=== PATIENT | female | born 1950 | race Caucasian/White ===

== ENCOUNTER 2018-08-09 00:22 | Inpatient (IN) ==
--- NOTE | 2018-08-09 00:52 | ED ---
HPI General Chief Complaint: Shortness of Breath/Dyspnea Stated Complaint: resp Time Seen by Provider: 08/09/18 00:34 Source: patient Mode of arrival: ambulatory Limitations: no limitations History of Present Illness 68-year-old female complains that upper back pain and shortness of breath. Patient states that symptoms started about 4 hours prior to arrival. Patient states the pain is sharp pain severe pain localized to left upper back area. Patient denies any pain radiation. Patient states that the pain is worse with deep breathing. Patient states that she has persistent cough for the past month. Patient states the cough is dry cough and got better recently. Patient denies any fever chills. Patient denies any injury. Patient has history of COPD. Patient is a smoker. Patient uses inhaler occasionally. Patient also has history of PVCs, psoriasis, fibromyalgia. Patient states that she noticed the pain and swelling the right leg for the past 4 days. Patient denies any recent long distance travel or airplane flight. Patient is not on any hormone replacement. Patient denies any history of DVT or PE. MD Complaint: Reports shortness of breath, cough and pain with inspiration Onset (ago): hour(s) Severity: moderate Consistency/Duration: intermittent Relieving factors: nothing Exacerbating factors: inspiration Known history of: Reports COPD Associated symptoms: Reports pain with inspiration and cough Treatment prior to arrival: Reports none Related Data Home Medications Medication Instructions Recorded Confirmed clobetasol 1 applic TOPICAL BID 08/09/18 08/09/18 esomeprazole magnesium [Nexium] 20 mg PO DAILY 08/09/18 08/09/18 melatonin 5 mg PO HS PRN 08/09/18 08/09/18 metoprolol succinate 25 mg PO DAILY 08/09/18 08/09/18 naproxen sodium [Aleve] 220 mg PO BID PRN 08/09/18 08/09/18 oxycodone-acetaminophen [Percocet] 1 tab PO Q4-6H PRN 08/09/18 08/09/18 pregabalin [Lyrica] 75 mg PO DAILY 08/09/18 08/09/18 sertraline 100 mg PO DAILY 08/09/18 08/09/18 umeclidinium-vilanterol [Anoro 1 inh INHALATION Q24H 08/09/18 08/09/18 Ellipta] Allergies Allergy/AdvReac Type Severity Reaction Status Date / Time meperidine Allergy Intermediate Hives Verified 08/09/18 00:28 morphine Allergy Intermediate Hives Verified 08/09/18 00:28 Review of Systems ROS: all other systems reviewed are negative PMFSH Medical History Medical History COPD (chronic obstructive pulmonary disease) (Acute) Fibromyalgia (Acute) Hx of hysterectomy (Acute) PVC (premature ventricular contraction) (Acute) Pleurisy (Acute) Psoriasis (Acute) Tachycardia (Acute) Social History Social History Substance History: No History of Abuse Second Hand Smoke Exposure: Yes Smoking Status: Current every day smoker Tobacco Type: Cigarettes How Often Do You Have a Drink Containing Alcohol: Never Recent Travel in [facility] within the Last 8 Weeks: No Recent Out of Country Travel within the Last 8 Weeks: No Immunization History Tetanus Immunization: >5 Years Exam Narrative Exam Narrative: GENERAL: Well-nourished, well-developed patient. SKIN: Focused skin assessment warm/dry. HEAD: Normocephalic. EYES: No scleral icterus. No injection or drainage. NECK: Supple, trachea midline. No JVD or lymphadenopathy. CARDIOVASCULAR: Regular rate and rhythm without murmurs, gallops, or rubs. RESPIRATORY: Breath sounds equal bilaterally. No accessory muscle use. GASTROINTESTINAL: Abdomen soft, non-tender, nondistended. MUSCULOSKELETAL: Patient had diffuse soft tissue swelling tenderness right calf area. Negative Homans sign. BACK: Nontender without obvious deformity. No CVA tenderness. Neurologic exam normal. Course Initial Documented Vital Signs Temperature 97.4 F L 08/09/18 00:24 Pulse Rate 67 08/09/18 00:24 Respiratory Rate 18 08/09/18 00:24 Blood Pressure 173/81 H 08/09/18 00:24 Pulse Oximetry 99 08/09/18 00:24 Last Documented Vital Signs Temperature 98.8 F 08/09/18 20:00 Pulse Rate 84 08/09/18 22:00 Respiratory Rate 18 08/09/18 22:00 Blood Pressure 146/65 H 08/09/18 22:00 Pulse Oximetry 93 L 08/09/18 22:00 Medical Decision Making MDM Narrative Medical decision making narrative: 68-year-old female with left upper back pain and shortness of breath. History of COPD. Medical Screen Exam Complete: Yes Emergency Medical Condition: Yes Differential Diagnosis Differential Diagnosis: Diagnosis including pleurisy, pneumonia, PE, pneumothorax. Lab Data Lab results reviewed: Yes I reviewed the patient's lab results. Result diagrams: 08/09/18 01:00 08/09/18 01:00 Lab Results 08/09/18 08/09/18 08/09/18 Range/Units 01:00 01:00 01:00 WBC 6.1 (4.0-11.0) th/mm3 RBC 4.29 (4.00-5.30) mil/mm3 Hgb 12.8 (11.6-15.3) gm/dL Hct 37.3 (35.0-46.0) % MCV 86.8 (80.0-100.0) fL MCH 29.8 (27.0-34.0) pg MCHC 34.4 (32.0-36.0) % RDW 14.1 (11.6-17.2) % Plt Count 149 L (150-450) th/mm3 MPV 7.7 (7.0-11.0) fL Neut % (Auto) 85.9 H (16.0-70.0) % Lymph % (Auto) 9.9 (9.0-44.0) % Bent % (Auto) 2.4 (0.0-8.0) % Eos % (Auto) 1.3 (0.0-4.0) % Baso % (Auto) 0.5 (0.0-2.0) % Neut # (Auto) 5.3 (1.8-7.7) th/mm3 Lymph # (Auto) 0.6 L (1.0-4.8) th/mm3 Bent # (Auto) 0.1 (0.0-0.9) th/mm3 Eos # (Auto) 0.1 (0.0-0.4) th/mm3 Baso # (Auto) 0.0 (0.0-0.2) th/mm3 WBC Differential . Differential Comment Auto diff final PT 9.4 L (9.8-11.6) sec INR 0.9 Ratio APTT 29.0 (23.4-31.7) sec D-Dimer Quant (PE/DVT) 4.31 H (0.00-0.50) mg/L FEU Sodium 142 (136-145) meq/L Potassium 3.9 (3.5-5.1) meq/L Chloride 107 (98-107) meq/L Carbon Dioxide 26.2 (21.0-32.0) meq/L Anion Gap 9 (5-15) meq/L BUN 10 (7-18) mg/dL Creatinine 0.81 (0.50-1.00) mg/dL Estimated GFR 71 L (>89) mL/min POC Glucose (68-110) mg/dl Random Glucose 123 H (74-106) mg/dL Calcium 8.2 L (8.5-10.1) mg/dL Total Bilirubin 0.7 (0.2-1.0) mg/dL AST 27 (15-37) U/L ALT 25 (10-53) U/L Alkaline Phosphatase 108 (45-117) U/L Total Creatine Kinase 106 (26-192) U/L CK-MB (CK-2) 1.6 (0.5-3.6) ng/mL Troponin I Less than 0.02 L (0.02-0.05) ng/mL Total Protein 7.3 (6.4-8.2) g/dL Albumin 3.3 L (3.4-5.0) g/dL Nasal Screen MRSA (PCR) (Negative) 08/09/18 08/09/18 08/09/18 Range/Units 03:25 04:52 05:52 WBC (4.0-11.0) th/mm3 RBC (4.00-5.30) mil/mm3 Hgb (11.6-15.3) gm/dL Hct (35.0-46.0) % MCV (80.0-100.0) fL MCH (27.0-34.0) pg MCHC (32.0-36.0) % RDW (11.6-17.2) % Plt Count (150-450) th/mm3 MPV (7.0-11.0) fL Neut % (Auto) (16.0-70.0) % Lymph % (Auto) (9.0-44.0) % Bent % (Auto) (0.0-8.0) % Eos % (Auto) (0.0-4.0) % Baso % (Auto) (0.0-2.0) % Neut # (Auto) (1.8-7.7) th/mm3 Lymph # (Auto) (1.0-4.8) th/mm3 Bent # (Auto) (0.0-0.9) th/mm3 Eos # (Auto) (0.0-0.4) th/mm3 Baso # (Auto) (0.0-0.2) th/mm3 WBC Differential Differential Comment PT (9.8-11.6) sec INR Ratio APTT (23.4-31.7) sec D-Dimer Quant (PE/DVT) (0.00-0.50) mg/L FEU Sodium (136-145) meq/L Potassium (3.5-5.1) meq/L Chloride (98-107) meq/L Carbon Dioxide (21.0-32.0) meq/L Anion Gap (5-15) meq/L BUN (7-18) mg/dL Creatinine (0.50-1.00) mg/dL Estimated GFR (>89) mL/min POC Glucose 146 H 152 H (68-110) mg/dl Random Glucose (74-106) mg/dL Calcium (8.5-10.1) mg/dL Total Bilirubin (0.2-1.0) mg/dL AST (15-37) U/L ALT (10-53) U/L Alkaline Phosphatase (45-117) U/L Total Creatine Kinase (26-192) U/L CK-MB (CK-2) (0.5-3.6) ng/mL Troponin I (0.02-0.05) ng/mL Total Protein (6.4-8.2) g/dL Albumin (3.4-5.0) g/dL Nasal Screen MRSA (PCR) Not detected (Negative) 08/09/18 08/09/18 08/09/18 Range/Units 10:43 12:59 14:01 WBC (4.0-11.0) th/mm3 RBC (4.00-5.30) mil/mm3 Hgb (11.6-15.3) gm/dL Hct (35.0-46.0) % MCV (80.0-100.0) fL MCH (27.0-34.0) pg MCHC (32.0-36.0) % RDW (11.6-17.2) % Plt Count (150-450) th/mm3 MPV (7.0-11.0) fL Neut % (Auto) (16.0-70.0) % Lymph % (Auto) (9.0-44.0) % Bent % (Auto) (0.0-8.0) % Eos % (Auto) (0.0-4.0) % Baso % (Auto) (0.0-2.0) % Neut # (Auto) (1.8-7.7) th/mm3 Lymph # (Auto) (1.0-4.8) th/mm3 Bent # (Auto) (0.0-0.9) th/mm3 Eos # (Auto) (0.0-0.4) th/mm3 Baso # (Auto) (0.0-0.2) th/mm3 WBC Differential Differential Comment PT (9.8-11.6) sec INR Ratio APTT 116.8 H* D 92.7 H* D (23.4-31.7) sec D-Dimer Quant (PE/DVT) (0.00-0.50) mg/L FEU Sodium (136-145) meq/L Potassium (3.5-5.1) meq/L Chloride (98-107) meq/L Carbon Dioxide (21.0-32.0) meq/L Anion Gap (5-15) meq/L BUN (7-18) mg/dL Creatinine (0.50-1.00) mg/dL Estimated GFR (>89) mL/min POC Glucose 122 H (68-110) mg/dl Random Glucose (74-106) mg/dL Calcium (8.5-10.1) mg/dL Total Bilirubin (0.2-1.0) mg/dL AST (15-37) U/L ALT (10-53) U/L Alkaline Phosphatase (45-117) U/L Total Creatine Kinase (26-192) U/L CK-MB (CK-2) (0.5-3.6) ng/mL Troponin I (0.02-0.05) ng/mL Total Protein (6.4-8.2) g/dL Albumin (3.4-5.0) g/dL Nasal Screen MRSA (PCR) (Negative) 08/09/18 Range/Units 17:00 WBC (4.0-11.0) th/mm3 RBC (4.00-5.30) mil/mm3 Hgb (11.6-15.3) gm/dL Hct (35.0-46.0) % MCV (80.0-100.0) fL MCH (27.0-34.0) pg MCHC (32.0-36.0) % RDW (11.6-17.2) % Plt Count (150-450) th/mm3 MPV (7.0-11.0) fL Neut % (Auto) (16.0-70.0) % Lymph % (Auto) (9.0-44.0) % Bent % (Auto) (0.0-8.0) % Eos % (Auto) (0.0-4.0) % Baso % (Auto) (0.0-2.0) % Neut # (Auto) (1.8-7.7) th/mm3 Lymph # (Auto) (1.0-4.8) th/mm3 Bent # (Auto) (0.0-0.9) th/mm3 Eos # (Auto) (0.0-0.4) th/mm3 Baso # (Auto) (0.0-0.2) th/mm3 WBC Differential Differential Comment PT (9.8-11.6) sec INR Ratio APTT 72.5 H D (23.4-31.7) sec D-Dimer Quant (PE/DVT) (0.00-0.50) mg/L FEU Sodium (136-145) meq/L Potassium (3.5-5.1) meq/L Chloride (98-107) meq/L Carbon Dioxide (21.0-32.0) meq/L Anion Gap (5-15) meq/L BUN (7-18) mg/dL Creatinine (0.50-1.00) mg/dL Estimated GFR (>89) mL/min POC Glucose (68-110) mg/dl Random Glucose (74-106) mg/dL Calcium (8.5-10.1) mg/dL Total Bilirubin (0.2-1.0) mg/dL AST (15-37) U/L ALT (10-53) U/L Alkaline Phosphatase (45-117) U/L Total Creatine Kinase (26-192) U/L CK-MB (CK-2) (0.5-3.6) ng/mL Troponin I (0.02-0.05) ng/mL Total Protein (6.4-8.2) g/dL Albumin (3.4-5.0) g/dL Nasal Screen MRSA (PCR) (Negative) Imaging Data Attestation: I personally reviewed and interpreted this imaging study as follows : Radiologist's impression: Chest X-Ray 08/09/18 00:43 CONCLUSION: No acute cardiopulmonary disease identified. Chest CTA 08/09/18 00:45 CONCLUSION: Multiple moderate-sized pulmonary emboli bilaterally. Venous Doppler Study 08/09/18 02:54 CONCLUSION: Occlusive deep vein thrombosis of the popliteal vein, proximal peroneal vein, and proximal posterior tibial vein. Nonocclusive deep vein thrombosis of the distal superficial femoral vein. Discharge Plan Discharge Disposition Patient Disposition: ED Admit(ED Internal Use Only) Discharge Order Discharge Orders: ED Use Only Admit Order (Routine); Ordered 08/09/18 Ordered By: Billy Lazcano Discharge Details Diagnosis: Pulmonary emboli, Right leg DVT Physicians Team ED Provider: Billy Lazcano Primary Care Provider: UNKNOWN, Attending Provider: Bel Hinds Other Providers: [employer] Status ED Status: Left Department Discharge Information Discharge Date/Time: 08/09/18 04:15
[2018-08-09 01:11] LABS: Baso % (Auto) 0.5 % (0.0-2.0); Eos # (Auto) 0.1 th/mm3 (0.0-0.4); Eos % (Auto) 1.3 % (0.0-4.0); Hematocrit 37.3 % (35.0-46.0); Hemoglobin 12.8 gm/dL (11.6-15.3); Lymph # (Auto) 0.6 th/mm3 (1.0-4.8); Lymph % (Auto) 9.9 % (9.0-44.0); Mean Corpuscular HGB Conc 34.4 % (32.0-36.0); Mean Corpuscular Hemoglobin 29.8 pg (27.0-34.0); Mean Corpuscular Volume 86.8 fL (80.0-100.0); Mean Platelet Volume 7.7 fL (7.0-11.0); Mono # (Auto) 0.1 th/mm3 (0.0-0.9); Mono % (Auto) 2.4 % (0.0-8.0); Neut # (Auto) 5.3 th/mm3 (1.8-7.7); Neut % (Auto) 85.9 % (16.0-70.0); Platelet Count 149 th/mm3 (150-450); Red Blood Count 4.29 mil/mm3 (4.00-5.30); Red Cell Distribution Width 14.1 % (11.6-17.2); White Blood Count 6.1 th/mm3 (4.0-11.0)
--- NOTE | 2018-08-09 01:26 | XR ---
EXAM DATE: 08/09/2018 1:09 AM EST AGE/SEX: 68 years / Female INDICATIONS: Short of breath. CLINICAL DATA: This is the patient's initial encounter. Patient reports that signs and symptoms have been present for 1 day and indicates a pain score of 0/10. MEDICAL/SURGICAL HISTORY: None. None. COMPARISON: No prior exams available for comparison. FINDINGS: Single AP view the chest. The lungs are clear. Cardiomediastinal silhouette within normal limits. No evidence of pleural effusion or pneumothorax. CONCLUSION: No acute cardiopulmonary disease identified. Electronically signed by: Seven Doe MD 08/09/2018 1:25 AM EST
[2018-08-09 01:46] LABS: Alanine Aminotransferase 25 U/L (10-53); Albumin 3.3 g/dL (3.4-5.0); Anion Gap 9 meq/L (5-15); Aspartate Aminotransferase 27 U/L (15-37); Blood Urea Nitrogen 10 mg/dL (7-18); Calcium 8.2 mg/dL (8.5-10.1); Carbon Dioxide 26.2 meq/L (21.0-32.0); Chloride 107 meq/L (98-107); Glomerular Filtration Rate 71 mL/min (>89); Glucose,Random 123 mg/dL (74-106); Potassium 3.9 meq/L (3.5-5.1); Sodium 142 meq/L (136-145)
[2018-08-09 01:48] LABS: INR 0.9 Ratio; Prothrombin Time 9.4 sec (9.8-11.6)
[2018-08-09 01:50] LABS: Alkaline Phosphatase 108 U/L (45-117); Creatine Kinase 106 U/L (26-192); Total Protein 7.3 g/dL (6.4-8.2)
[2018-08-09 01:55] LABS: D-Dimer 4.31 mg/L FEU (0.00-0.50)
[2018-08-09 02:02] LABS: Creatine Kinase MB 1.6 ng/mL (0.5-3.6)
--- NOTE | 2018-08-09 02:15 | CT ---
EXAM DATE: 08/09/2018 2:05 AM EST AGE/SEX: 68 years / Female INDICATIONS: Left sided chest pain. CLINICAL DATA: This is the patient's initial encounter. Patient reports that signs and symptoms have been present for 1 day and indicates a pain score of 6/10. MEDICAL/SURGICAL HISTORY: Cardiovascular disease. Chronic obstructive pulmonary disease. Hysterect moose. RADIATION DOSE: 10.51 CTDI (mGy) COMPARISON: No prior exams available for comparison. TECHNIQUE: Volumetric scanning was performed using a multi-row detector CT scanner during bolus infu jovita of 50 ml Omnipaque 350 (iohexol) nonionic water-soluble contrast as a single exam dose. The kayleen a was post processed with a variety of visualization algorithms including full volume maximum intensi ty projection and sliding thin slab reformation. Using automated exposure control and adjustment of the mA and/or kV according to patient size, radiation dose was kept as low as reasonably achievable t o obtain optimal diagnostic quality images. DICOM format image data is available electronically for review and comparison. FINDINGS: Pulmonary Arteries: Multiple large filling defects in the proximal segmental branches of the right u pper lobe, right middle lobe, right lower lobe, and left lower lobe indicating pulmonary emboli. Lung: Scarring at the right lung apex. Atelectasis in the lower lobes bilaterally. Effusion: None. Mediastinum: No evidence of mediastinal or hilar adenopathy. Other: The axilla is unremarkable. CONCLUSION: Multiple moderate-sized pulmonary emboli bilaterally. Electronically signed by: Seven Doe MD 08/09/2018 2:14 AM EST
[2018-08-09] MEDS ORDERED: Heparin 10,000 UNITS/10 ML Vial (for IV use) IV.PUSH STA (02:54)
[2018-08-09] MEDS ORDERED: Magnesium Oxide 400 MG Tablet PO PRN (03:01)
[2018-08-09] MEDS ORDERED: Sodium Phosphate Inj 30 MMOL in Sodium Chlor 0.9% Inj 250 ML IV.SIG PRN (03:01)
[2018-08-09] MEDS ORDERED: Acetaminophen 325 MG Tablet PO PRN ×2 (03:01→06:56)
[2018-08-09] MEDS ORDERED: Dextrose 50% in Water 50 ML Vial IV.PUSH PRN (03:01)
[2018-08-09] MEDS ORDERED: Potassium Phosphate Inj 30 MMOL in Sodium Chlor 0.9% Inj 250 ML IV.SIG PRN (03:01)
[2018-08-09] MEDS ORDERED: Potassium Chlor 20 mEq Premix 20 MEQ/100 ML PIGGYBACK IV.SIG PRN ×2 (03:01)
[2018-08-09] MEDS ORDERED: Potassium Chloride 25 MEQ Effervescent Tablet PO PRN (03:01)
[2018-08-09] MEDS ORDERED: Bisacodyl 10 MG Supp RECTAL PRN (03:01)
[2018-08-09] MEDS ORDERED: Potassium Phosphate 500 MG Soluble Tablet PO PRN ×2 (03:01)
[2018-08-09] MEDS ORDERED: Magnesium Sulfate Inj 4 GM in Sodium Chlor 0.9% Inj 92 ML IV.SIG PRN (03:01)
[2018-08-09] MEDS ORDERED: Potassium Chlor 40 mEq Premix 40 MEQ/100 ML PIGGYBACK IV.SIG PRN ×2 (03:01)
[2018-08-09] MEDS ORDERED: Magnesium Sulfate Inj 2 GM in Sodium Chlor 0.9% Inj 96 ML IV.SIG PRN (03:01)
[2018-08-09] MEDS: Heparin Drip 25,000 UNIT/250 ML BAG IV.CONT PRN (03:11)
--- NOTE | 2018-08-09 03:19 | P.HPCC ---
History of Present Illness Service: Critical care medicine Primary Care Physician: UNKNOWN Chief Complaint: chest pain History of Present Illness: 68yF with history of tobacco abuse and COPD presents with 4 days of RLE swelling and calf pain, and then sudden-onset acute substernal chest pain last night that began suddenly. worse with deep inspiration. also a feeling that she "can't catch her breath." denies lightheadedness, syncope. denies fever, chills , cough, congestion. denies n/v/c/d or abd pain. in the ER, CTA pulmonary angiogram demonstrates significant bilateral pulmonary emboli with significant clot burden. I went immediately to the bedside and evaluated the patient. I performed bedside critical care echocardiogram which demonstrates normal biventricular function, and in particular a collapsable IVC, no clinically significant TR, normal TAPSE, normal RV size and gross function, no evidence of McConnel's sign. She also has negative biomarker evidence of RV strain. Of note , patient is not on OCPs, does not take anticoagulation, has no personal or family history of blood clots, clotting or bleeding disorders. ROS is otherwise negative. FHx: no family history of blood clots, clotting disorders, bleeding disorders, PE. Review of Systems All other systems reviewed negative except as stated in HPI PMFSH - History History Provided By: Patient - Medical History Medical History: Medical History (Last Reviewed 08/09/18 @ 03:09 by Keith Marin MD) COPD (chronic obstructive pulmonary disease) Fibromyalgia Hx of hysterectomy PVC (premature ventricular contraction) Pleurisy Psoriasis Tachycardia - Social History I have reviewed the patient's Social History: Yes - Tobacco History Second Hand Smoke Exposure: Yes Tobacco Use In Past 30 Days: Yes Smoking Status: Current every day smoker Tobacco Type: Cigarettes - Alcohol History How Often Do You Have a Drink Containing Alcohol: Never - Substance Use History Substance History: No History of Abuse - Travel History Recent Travel in the [place] Within the Last 8 Weeks: No Recent Travel Out of the Country Within the Last 8 Weeks: No - Immunization History Tetanus Immunization: >5 Years Medications and Allergies Active Medications: Active Medications Acetaminophen (Tylenol) 650 mg PO Q6H PRN PRN Reason: TEMPERATURE > 101 F Albuterol (Duoneb Neb (Prn)) 1 ampul NEB Q2HR NEB PRN PRN Reason: WHEEZING Albuterol (Duoneb Neb (Beatrice)) 1 ampul NEB Q6HR NEB BEATRICE Bisacodyl (Dulcolax Supp) 10 mg RECTAL DAILY PRN PRN Reason: if no BM in last 24h Chlorhexidine Gluconate (Chlorhexidine 2% Cloth) 3 pack TOPICAL DAILY@0400 BEATRICE Stop: 08/14/18 03:59 Chlorhexidine Gluconate (Chlorhexidine 2% Cloth) 3 pack TOPICAL DAILY@0400 PRN PRN Reason: Extra cloth needed Stop: 08/14/18 03:59 Dextrose (D50w Vial) 50 ml IV.PUSH UNSCH PRN PRN Reason: PER HYPOGLYCEMIA PROTOCOL Glucagon (Glucagon Inj) 1 mg OTHER PRN PRN PRN Reason: for Hypoglycemia Protocol Heparin Sodium/Dextrose (Heparin/D5w 25,000 U/250 Ml) 25,000 unit in 250 mls @ 0 mls/hr IV.CONT TITRATE PRN; Protocol PRN Reason: Per Protocol Magnesium Sulfate 2 gm/ Sodium (Chloride) 100 mls @ 50 mls/hr IV.SIG UNSCH PRN PRN Reason: For Magnesium 1.2 - 1.6 mg/dL Sodium Chloride (Ns Inj) 1,000 mls @ 42 mls/hr IV.CONT .[id number] [facility] Potassium Chloride (Kcl 40 Meq Premix Inj) 40 meq in 100 mls @ 25 mls/hr IV.SIG Q2H PRN PRN Reason: For Potassium 2.8 - 3.2 mEq/L Potassium Chloride (Kcl 20 Meq Premix Inj) 20 meq in 100 mls @ 50 mls/hr IV.SIG Q2H PRN PRN Reason: For Potassium 3.3 - 3.5 mEq/L Potassium Chloride (Kcl 20 Meq Premix Inj) 20 meq in 100 mls @ 50 mls/hr IV.SIG Q2H PRN PRN Reason: For Potassium 2.8 - 3.2 mEq/L Potassium Phosphate 30 mmol/ (Sodium Chloride) 260 mls @ 42 mls/hr IV.SIG UNSCH PRN PRN Reason: SEE LABEL COMMENTS Sodium Phosphate 30 mmol/ (Sodium Chloride) 260 mls @ 42 mls/hr IV.SIG UNSCH PRN PRN Reason: For Phosphorus < 2.5 mg/dL Magnesium Sulfate 4 gm/ Sodium (Chloride) 100 mls @ 50 mls/hr IV.SIG UNSCH PRN PRN Reason: For Magnesium 0.9 - 1.1 mg/dL Potassium Chloride (Kcl 40 Meq Premix Inj) 40 meq in 100 mls @ 25 mls/hr IV.SIG UNSCH PRN PRN Reason: For Potassium 3.3 - 3.5 mEq/L Insulin Human Regular (Novolin R Correctional Sugar Inj) 0 units SQ Q6HR BEATRICE; Protocol Lactulose (Lactulose Liq) 30 ml PO BID BEATRICE Magnesium Oxide (Mag-Ox) 800 mg PO UNSCH PRN PRN Reason: For Magnesium 1.2 - 1.6 mg/dL Ondansetron HCl (Zofran Inj) 4 mg IV.PUSH Q6H PRN PRN Reason: NAUSEA OR VOMITING Pantoprazole Sodium (Protonix Inj) 40 mg IV.PUSH Q24H [facility]ATRICE Polyethylene Glycol (Miralax) 17 gm PO BID BEATRICE Potassium Bicarb/Potassium Chloride (K-Lyte Cl Eff) 50 meq PO UNSCH PRN PRN Reason: For Potassium 3.3 - 3.5 mEq/L Potassium Phosphate (K-Phos Original) 2,000 mg PO Q4H PRN PRN Reason: Phosphorus Less Than 2.5 mg/dL Potassium Phosphate (K-Phos Original) 2,000 mg PO UNSCH PRN PRN Reason: SEE LABEL COMMENTS Senna/Docusate Sodium (Irma-Colace) 1 tab PO BID [facility] Sodium Chloride (Ns Flush) 2 ml IV.FLUSH UNSCH PRN PRN Reason: FLUSH AFTER USING IV ACCESS Allergies Allergy/AdvReac Type Severity Reaction Status Date / Time meperidine Allergy Intermediate Hives Verified 08/09/18 00:28 morphine Allergy Intermediate Hives Verified 08/09/18 00:28 Home Medications Medication Instructions Recorded Confirmed Type clobetasol 1 applic TOPICAL BID 08/09/18 08/09/18 History esomeprazole magnesium [Nexium] 20 mg PO DAILY 08/09/18 08/09/18 History melatonin 5 mg PO HS PRN 08/09/18 08/09/18 History metoprolol succinate 25 mg PO DAILY 08/09/18 08/09/18 History naproxen sodium [Aleve] 220 mg PO BID PRN 08/09/18 08/09/18 History oxycodone-acetaminophen [Percocet] 1 tab PO Q4-6H PRN 08/09/18 08/09/18 History pregabalin [Lyrica] 75 mg PO DAILY 08/09/18 08/09/18 History sertraline 100 mg PO DAILY 08/09/18 08/09/18 History umeclidinium-vilanterol [Anoro 1 inh INHALATION Q24H 08/09/18 08/09/18 History Ellipta] Results - Labs CBC & Chem 7: 08/09/18 01:00 08/09/18 01:00 Labs: Short CBC 08/09/18 Range/Units 01:00 WBC 6.1 (4.0-11.0) th/mm3 Hgb 12.8 (11.6-15.3) gm/dL Hct 37.3 (35.0-46.0) % Plt Count 149 L (150-450) th/mm3 BMP 08/09/18 01:00 Sodium 142 Potassium 3.9 Chloride 107 Carbon Dioxide 26.2 BUN 10 Creatinine 0.81 Calcium 8.2 L Cardiac Enzymes 08/09/18 Range/Units 01:00 Total Creatine Kinase 106 (26-192) U/L CK-MB (CK-2) 1.6 (0.5-3.6) ng/mL Troponin I Less than 0.02 L (0.02-0.05) ng/mL Liver Function 08/09/18 Range/Units 01:00 Total Bilirubin 0.7 (0.2-1.0) mg/dL AST 27 (15-37) U/L ALT 25 (10-53) U/L Alkaline Phosphatase 108 (45-117) U/L Albumin 3.3 L (3.4-5.0) g/dL - Imaging Impressions Chest X-Ray 08/09/18 00:43 CONCLUSION: No acute cardiopulmonary disease identified. Chest CTA 08/09/18 00:45 CONCLUSION: Multiple moderate-sized pulmonary emboli bilaterally. Exam Vital signs: Vital Signs 08/09/18 00:24 08/09/18 00:28 08/09/18 00:46 Temperature 36.3 C L 36.7 C Pulse Rate 67 60 Respiratory Rate 18 16 Blood Pressure 173/81 H 165/74 H Pulse Oximetry 99 100 100 08/09/18 02:59 Temperature Pulse Rate 60 Respiratory Rate 24 Blood Pressure 144/65 H Pulse Oximetry 98 Intake & Output 08/08/18 08/08/18 08/09/18 06:59 18:59 06:59 Weight 92.079 kg Narrative: GENERAL: Middle-age female, lying in bed, distress due to chest pain HEENT: Normocephalic. Atraumatic. Pupils equal, round, reactive, conjugate. Mucous membranes are moist NECK: Trachea is midline. There is no JVD. CHEST: Equal chest rise. Room air. SPO2 98%. Unlabored. CARDIOVASCULAR: Normal rate of 82, regular rhythm. Sinus. ABDOMEN: Soft, nontender, nondistended. No guarding. MUSCULOSKELETAL: Pulses 2+. Right lower extremity has 2+ edema compared to the left without any edema. Positive Homans sign on the right. NEUROLOGICAL: RASS 0. GCS 15. CAM -. Follows commands in all 4 extremities. No focal deficits. Caprini VTE Risk Assessment Caprini VTE Risk Assessment: Moderate/High Risk (score >= 2) Caprini Risk Assessment Model: Point Value = 1 Point Value = 2 Point Value = 3 Point Value = 5 Age 41-60 Minor surgery BMI > 25 kg/m2 Swollen legs Varicose veins or History of unexplained or recurrent spontaneous Oral contraceptives or hormone replacement Sepsis (< 1 month) Serious lung disease, including pneumonia (< 1 month) Abnormal pulmonary function Acute myocardial infarction Congestive heart failure (< 1 month) History of inflammatory bowel disease Medical patient at bed rest Age 61-74 Arthroscopic surgery Major open surgery (> 45 min) Laparoscopic surgery (> 45 min) Malignancy Confined to bed (> 72 hours) Immobilizing plaster cast Central venous access Age >= 75 History of VTE Family history of VTE Factor V Leiden Prothrombin [id number] Lupus anticoagulant Anticardiolipin antibodies Elevated serum homocysteine Heparin-induced thrombocytopenia Other congenital or acquired thrombophilia Stroke (< 1 month) Elective arthroplasty Hip, pelvis, or leg fracture Acute spinal cord injury (< 1 month) Prophylaxis Regimen: Total Risk Factor Score Risk Level Prophylaxis Regimen 0-1 Low Early ambulation 2 Moderate Order ONE of the following: *Sequential Compression Device (SCD) *Heparin 5000 units SQ BID 3-4 Higher Order ONE of the following medications: *Heparin 5000 units SQ TID *Enoxaparin/Lovenox 40 mg SQ daily (WT < 150 kg, CrCl > 30 mL/min) *Enoxaparin/Lovenox 30 mg SQ daily (WT < 150 kg, CrCl > 10-29 mL/min) *Enoxaparin/Lovenox 30 mg SQ BID (WT < 150 kg, CrCl > 30 mL/min) AND/OR *Sequential Compression Device (SCD) 5 or more Highest Order ONE of the following medications: *Heparin 5000 units SQ TID (Preferred with Epidurals) *Enoxaparin/Lovenox 40 mg SQ daily (WT < 150 kg, CrCl > 30 mL/min) *Enoxaparin/Lovenox 30 mg SQ daily (WT < 150 kg, CrCl > 10-29 mL/min) *Enoxaparin/Lovenox 30 mg SQ BID (WT < 150 kg, CrCl > 30 mL/min) AND *Sequential Compression Device (SCD) Assessment and Plan - Assessment and Plan Plan: Assessment: 68yF with new acute submassive pulmonary emboli. I discussed the case extensively with Dr. Lazcano: although her clot burden radiographically meets criteria for submassive PE, she has no biomarker or echocardiographic evidence of RV strain. Without any evidence of hemodynamic instability or RV strain, the risks of lytic therapy are unacceptably high, and we both agree the wisest course of action is conservative therapy with iv heparin infusion converting to long-term oral anticoagulation. I discussed the plan with the patient, and explained the risks of conservative therapy, including a possible 20% risk of sudden cardiac and 30% risk of long-term dyspnea secondary to CTEPH/WHO Class IV pulmonary hypertension. However, I also discussed the significant risk of life-threatening bleeding with lytic therapy, and discussed why this would be unacceptably high given the patient's stable hemodynamics and absence of cardiac strain. She clearly is critically ill with high risk of decompensation or , and will be admitted to the intensive care unit for close monitoring. Active problems: Submassive pulmonary emboli Right lower extremity DVT Tobacco abuse Plan: admit to ICU close monitoring bedrest x 12h, and then OOB with assistance PT consult heparin bolus and drip LE dopplers formal 2d echo counseled smoking cessation regular diet protonix iv for gi ppx SCDs: there has never been any evidence to suggest mechanical DVT prophylaxis increases the risk of further clot dislodgement. Further, SCDs may act to prevent clot propagation by release of endothelial factors. Critical care time: 33 minutes, exclusive of separately billable procedures.
[2018-08-09] MEDS ORDERED: Chlorhexidine Gluconate 2% 1 Pack (2 Cloths) TOPICAL PRN (04:00)
--- NOTE | 2018-08-09 04:12 | US ---
EXAM DATE: 08/09/2018 3:37 AM EST AGE/SEX: 68 years / Female INDICATIONS: Thrombosis. Pulmonary embolism. CLINICAL DATA: This is the patient's initial encounter. Patient reports that signs and symptoms have been present for 1 day and indicates a pain score of 2/10. MEDICAL/SURGICAL HISTORY: . Cardiovascular disease. Chronic obstructive pulmonary disease. Hys terectomy. COMPARISON: No prior exams available for comparison. TECHNIQUE: Venous ultrasound of both lower extremities was performed from the inguinal ligament to t he proximal calf. Real-time, color Doppler and spectral tracing, compression and augmentation techni ques were used. FINDINGS: There is incomplete compression and lack of color Doppler flow in the right popliteal vein , proximal peroneal vein, and proximal posterior tibial vein. Incomplete filling with color Doppler f low of the distal superficial femoral vein also noted. Common femoral vein, proximal superficial femo ral vein, and mid superficial femoral vein showed normal color Doppler flow and compression. CONCLUSION: Occlusive deep vein thrombosis of the popliteal vein, proximal peroneal vein, and proximal posterior tibial vein. Nonocclusive deep vein thrombosis of the distal superficial femoral vein. Electronically signed by: Seven Doe MD 08/09/2018 4:10 AM EST
[2018-08-09] MEDS: Sod Chloride 0.9% Inj 1,000 ML IV.CONT SCH (04:30)
[2018-08-09] MEDS: Chlorhexidine Gluconate 2% 1 Pack (2 Cloths) TOPICAL SCH (04:48)
[2018-08-09] MEDS: Pantoprazole Inj 40 MG Vial IV.PUSH SCH (04:48)
[2018-08-09] MEDS: Insulin NovoLIN Regular Correctional Sugar Inj SQ SCH ×2 (05:58→13:30)
[2018-08-09] MEDS: Polyethylene Glycol 3350 17 GM Packet PO SCH ×2 (08:21→21:54)
[2018-08-09] MEDS: Senna/Docusate Sodium 8.6/50 MG Tablet PO SCH ×2 (08:21→21:54)
--- NOTE | 2018-08-09 08:23 | ECG ---
Date Performed: 08/09/2018 Time Performed: 01:00:08 PTAGE: 68 years EKG: SINUS BRADYCARDIA RIGHT BUNDLE BRANCH BLOCK ABNORMAL ECG PREVIOUS TRACING : 09/19/2010 18.09 DOCTOR: Parveen Johnston Interpretating Date/Time 08/09/2018 08:22:18
[2018-08-09] MEDS ORDERED: Melatonin 5 MG Tablet PO PRN (14:00)
[2018-08-09] MEDS ORDERED: ALPRAZolam 0.25 MG Tablet PO ONE (14:00)
--- NOTE | 2018-08-09 15:44 | P.PNIM ---
Physical Exam Vital signs: Last Vital Signs Temp 98.4 F 08/09/18 04:03 Pulse 68 08/09/18 09:17 Resp 16 08/09/18 09:17 BP 135/63 08/09/18 06:00 Pulse Ox 98 08/09/18 08:00 Intake & Output 08/07/18 08/08/18 08/09/18 08/10/18 06:59 06:59 06:59 06:59 Intake Total 50 / 50 Balance 50 / 50 Weight 93.5 kg Results Labs CBC & Chem 7: 08/09/18 01:00 08/09/18 01:00 Labs: Microbiology 08/09/18 01:03 Nasal Wash Influenza Types A,B Antigen - Final Negative for FLU A and B antigen Infection due to influenza A or B cannot be ruled out since the antigen present in the sample may be below the detection limit of the test. Imaging Imaging: Impressions Chest X-Ray 08/09/18 00:43 CONCLUSION: No acute cardiopulmonary disease identified. Chest CTA 08/09/18 00:45 CONCLUSION: Multiple moderate-sized pulmonary emboli bilaterally. Venous Doppler Study 08/09/18 02:54 CONCLUSION: Occlusive deep vein thrombosis of the popliteal vein, proximal peroneal vein, and proximal posterior tibial vein. Nonocclusive deep vein thrombosis of the distal superficial femoral vein. Assessment and Plan Plan 68-year-old white female with a history of COPD presents with a 4-day history of right lower extremity swelling and calf pain associated with acute substernal chest pain worse with deep inspiration found to have Submassive pulmonary emboli Right lower extremity DVT Continue close monitoring in the intensive care unit and consideration of transfer in the next 24 hours if remains stable Bedrest x 12h, and then OOB with assistance PT consult Continue heparin drip, Formal 2d echo currently pending Tobacco abusecounseled smoking cessation DVT prophylaxison heparin SCDs: there has never been any evidence to suggest mechanical DVT prophylaxis increases the risk of further clot dislodgement. Further, SCDs may act to prevent clot propagation by release of endothelial factors. Progress Note: Quality VTE Deep Vein Thrombosis/Pulmonary Embolism Present on Admission: Yes
[2018-08-09] MEDS: Pregabalin 75 MG Capsule PO SCH (20:14)
--- NOTE | 2018-08-09 20:53 | ECHRPT ---
Indication: SHORTNES OF BREATH CONCLUSIONS Normal left ventricular size. Wall thickness is normal. The left ventricular systolic function is normal with an estimated ejection fraction in the range of 55-60%. [id number] mitral valve regurgitation. There is mild tricuspid valve regurgitation. The estimated pulmonary arterial pressure is 50 mmHg. BP: / HR: Rhythm: Sinus MEASUREMENTS (Male / Female) Normal Values Technical Quality:Fair 2D ECHO LV Diastolic Diameter PLAX 4.9 cm 4.2 - 5.9 / 3.9 - 5.3 cm LV Systolic Diameter PLAX 3.7 cm IVS Diastolic Thickness 0.8 cm 0.6 - 1.0 / 0.6 - 0.9 cm LVPW Diastolic Thickness 0.8 cm 0.6 - 1.0 / 0.6 - 0.9 cm LV Relative Wall Thickness 0.3 RV Internal Dim ED PLAX 3.7 cm LVOT Diameter 1.8 cm Aortic Root Diameter 3.2 cm LA Systolic Diameter LX 3.3 cm 3.0 - 4.0 / 2.7 - 3.8 cm M-MODE AV Cusp Separation MM 1.8 cm DOPPLER AV Peak Velocity 187.0 cm/s AV Peak Gradient 14.0 mmHg LVOT Peak Velocity 136.0 cm/s LVOT Peak Gradient 7.4 mmHg AV Area Cont Eq pk 1.9 cm MV Peak Velocity 106.0 cm/s MV Peak Gradient 4.5 mmHg MV Mean Velocity 64.3 cm/s MV Mean Gradient 2.0 mmHg Mitral E Point Velocity 103.0 cm/s Mitral A Point Velocity 67.6 cm/s Mitral E to A Ratio 1.5 LV E' Lateral Velocity 10.1 cm/s Mitral E to LV E' Lateral Ratio 10.2 LV E' Septal Velocity 7.4 cm/s Mitral E to LV E' Septal Ratio 13.9 TR Peak Velocity 294.0 cm/s TR Peak Gradient 34.6 mmHg Right Atrial Pressure 15.0 mmHg Pulmonary Artery Systolic Pressu 49.6 mmHg Right Ventricular Systolic Press 49.6 mmHg PV Peak Velocity 87.4 cm/s PV Peak Gradient 3.1 mmHg FINDINGS LEFT VENTRICLE Normal left ventricular size. Wall thickness is normal. The left ventricular systolic function is normal with an estimated ejection fraction in the range of 55-60%. RIGHT VENTRICLE Normal right ventricular size and systolic function. LEFT ATRIUM The left atrial size is normal. RIGHT ATRIUM The right atrial size is normal. ATRIAL SEPTUM Normal atrial septal thickness without atrial level shunting by limited color doppler interrogation. AORTA The aortic root and proximal ascending aorta are normal in size on limited imaging. MITRAL VALVE [id number] mitral valve regurgitation. AORTIC VALVE Trileaflet aortic valve. No aortic valve stenosis or regurgitation. TRICUSPID VALVE There is mild tricuspid valve regurgitation. The estimated pulmonary arterial pressure is 50 mmHg. PULMONARY VALVE No pulmonary valve regurgitation or stenosis. VESSELS The inferior vena cava is slightly dilated. PERICARDIUM No pericardial effusion. Sybil Henley MD, FACC (Electronically Signed) Final Date:09 August 2018 20:52
[2018-08-10] MEDS: Sod Chloride 0.9% Inj 1,000 ML IV.CONT SCH (02:05)
[2018-08-10] MEDS: Pantoprazole Inj 40 MG Vial IV.PUSH SCH (04:22)
[2018-08-10] MEDS: Chlorhexidine Gluconate 2% 1 Pack (2 Cloths) TOPICAL SCH (04:23)
[2018-08-10 04:43] LABS: Baso % (Auto) 0.8 % (0.0-2.0); Eos # (Auto) 0.1 th/mm3 (0.0-0.4); Eos % (Auto) 2.5 % (0.0-4.0); Hematocrit 33.3 % (35.0-46.0); Hemoglobin 11.3 gm/dL (11.6-15.3); Lymph # (Auto) 1.6 th/mm3 (1.0-4.8); Lymph % (Auto) 33.7 % (9.0-44.0); Mean Corpuscular Hemoglobin 29.9 pg (27.0-34.0); Mean Platelet Volume 7.5 fL (7.0-11.0); Mono # (Auto) 0.2 th/mm3 (0.0-0.9); Mono % (Auto) 4.8 % (0.0-8.0); Neut # (Auto) 2.7 th/mm3 (1.8-7.7); Neut % (Auto) 58.2 % (16.0-70.0); Platelet Count 145 th/mm3 (150-450); Red Blood Count 3.79 mil/mm3 (4.00-5.30); Red Cell Distribution Width 14.1 % (11.6-17.2); White Blood Count 4.6 th/mm3 (4.0-11.0)
[2018-08-10 05:10] LABS: Alanine Aminotransferase 20 U/L (10-53); Albumin 2.8 g/dL (3.4-5.0); Anion Gap 6 meq/L (5-15); Aspartate Aminotransferase 16 U/L (15-37); Blood Urea Nitrogen 10 mg/dL (7-18); Calcium 8.1 mg/dL (8.5-10.1); Carbon Dioxide 27.6 meq/L (21.0-32.0); Chloride 111 meq/L (98-107); Glomerular Filtration Rate 86 mL/min (>89); Glucose,Random 100 mg/dL (74-106); Magnesium 2.1 mg/dL (1.5-2.5); Potassium 3.7 meq/L (3.5-5.1); Sodium 145 meq/L (136-145)
[2018-08-10 05:13] LABS: Alkaline Phosphatase 86 U/L (45-117); Phosphorus 3.6 mg/dL (2.5-4.9); Total Protein 6.4 g/dL (6.4-8.2)
[2018-08-10] MEDS: Sertraline 100 MG Tablet PO SCH (08:23)
[2018-08-10] MEDS: Senna/Docusate Sodium 8.6/50 MG Tablet PO SCH ×2 (08:24→20:41)
[2018-08-10] MEDS: Polyethylene Glycol 3350 17 GM Packet PO SCH ×2 (08:24→20:41)
[2018-08-10] MEDS: Metoprolol Tartrate 25 MG Tablet PO SCH ×2 (14:19→20:40)
--- NOTE | 2018-08-10 14:20 | P.PNIM ---
Subjective Interval history: Patient reports still pain when she takes a deep breath. To ambulate with PT without any difficulty today. Right leg pain better. Breathing okay with no active shortness of breath. Reports that she would like to restart her home metoprolol. No bowel movement. Previously had no bloody stools or black stools. Physical Exam Vital signs: Last Vital Signs Temp 99.0 F 08/10/18 12:00 Pulse 63 08/10/18 13:00 Resp 27 H 08/10/18 13:00 BP 135/60 08/10/18 13:00 Pulse Ox 98 08/10/18 13:00 Intake & Output 08/08/18 08/09/18 08/10/18 08/11/18 06:59 06:59 06:59 06:59 Intake Total 50 / 50 1290 / 1290 Balance 50 / 50 1290 / 1290 Weight 93.5 kg 98.2 kg Narrative: GENERAL: This is a well-nourished, well-developed patient, in no apparent distress. CARDIOVASCULAR: Regular rate and rhythm RESPIRATORY: Clear to auscultation. Breath sounds equal bilaterally. No wheezes , rales, or rhonchi. GASTROINTESTINAL: Abdomen soft, non-tender, nondistended. Normal active bowel sounds MUSCULOSKELETAL: Mild right lower leg swelling with tenderness on palpation. NEURO: Alert & Oriented x4 to person, place, time, situation. Moves all ext x4 Results Labs CBC & Chem 7: 08/10/18 04:31 08/10/18 04:31 Assessment and Plan (1) Pulmonary embolism: Code(s): I26.99 - Other pulmonary embolism without acute cor pulmonale Status: Acute (2) DVT (deep venous thrombosis): Code(s): I82.409 - Acute embolism and thrombosis of unspecified deep veins of unspecified lower extremity Status: Acute Plan 68-year-old white female with a history of COPD presents with a 4-day history of right lower extremity swelling and calf pain associated with acute substernal chest pain worse with deep inspiration found to have Submassive pulmonary emboli Right lower extremity DVT Continue heparin drip due to his slight drop in hemoglobin Hemoccult stools, repeat hemoglobin in the morning. 2D echo revealed normal EF, trace to mild mitral valve regurgitation, mild tricuspid regurgitation with pulmonary arterial pressure 50 mmHg Anemiato rule out underlying bleed versus delusional, hemoglobin 11.3 today, will monitor, Hemoccult stools Tobacco abusecounseled smoking cessation DVT prophylaxison heparin Transfer out of the intensive care unit. Progress Note: Quality VTE Deep Vein Thrombosis/Pulmonary Embolism Present on Admission: Yes
[2018-08-10] MEDS: Heparin Drip 25,000 UNIT/250 ML BAG IV.CONT PRN (17:32)
[2018-08-10] MEDS: Pregabalin 75 MG Capsule PO SCH (20:40)
[2018-08-11] MEDS: Pantoprazole Inj 40 MG Vial IV.PUSH SCH (04:28)
[2018-08-11] MEDS: Chlorhexidine Gluconate 2% 1 Pack (2 Cloths) TOPICAL SCH (04:28)
[2018-08-11] MEDS: Sod Chloride 0.9% Inj 1,000 ML IV.CONT SCH (04:29)
[2018-08-11 05:52] LABS: Baso % (Auto) 1.1 % (0.0-2.0); Eos # (Auto) 0.1 th/mm3 (0.0-0.4); Eos % (Auto) 3.4 % (0.0-4.0); Hematocrit 32.2 % (35.0-46.0); Hemoglobin 11.3 gm/dL (11.6-15.3); Lymph # (Auto) 1.3 th/mm3 (1.0-4.8); Mean Corpuscular HGB Conc 35.1 % (32.0-36.0); Mean Corpuscular Hemoglobin 30.4 pg (27.0-34.0); Mean Corpuscular Volume 86.7 fL (80.0-100.0); Mean Platelet Volume 7.5 fL (7.0-11.0); Mono # (Auto) 0.2 th/mm3 (0.0-0.9); Mono % (Auto) 5.6 % (0.0-8.0); Neut # (Auto) 2.4 th/mm3 (1.8-7.7); Neut % (Auto) 57.9 % (16.0-70.0); Platelet Count 152 th/mm3 (150-450); Red Blood Count 3.72 mil/mm3 (4.00-5.30); Red Cell Distribution Width 14.1 % (11.6-17.2); White Blood Count 4.1 th/mm3 (4.0-11.0)
[2018-08-11 06:01] LABS: Albumin 2.8 g/dL (3.4-5.0); Anion Gap 7 meq/L (5-15); Aspartate Aminotransferase 18 U/L (15-37); Blood Urea Nitrogen 11 mg/dL (7-18); Calcium 8.5 mg/dL (8.5-10.1); Carbon Dioxide 26.7 meq/L (21.0-32.0); Chloride 111 meq/L (98-107); Glomerular Filtration Rate 66 mL/min (>89); Glucose,Random 91 mg/dL (74-106); Magnesium 2.1 mg/dL (1.5-2.5); Potassium 3.8 meq/L (3.5-5.1); Sodium 145 meq/L (136-145)
[2018-08-11 06:03] LABS: Alanine Aminotransferase 20 U/L (10-53); Phosphorus 3.7 mg/dL (2.5-4.9)
[2018-08-11 06:05] LABS: Alkaline Phosphatase 89 U/L (45-117); Total Protein 6.4 g/dL (6.4-8.2)
[2018-08-11] MEDS: Sertraline 100 MG Tablet PO SCH (09:17)
[2018-08-11] MEDS: Senna/Docusate Sodium 8.6/50 MG Tablet PO SCH ×2 (09:43→21:29)
[2018-08-11] MEDS: Metoprolol Tartrate 25 MG Tablet PO SCH ×2 (09:43→21:26)
[2018-08-11] MEDS: Polyethylene Glycol 3350 17 GM Packet PO SCH ×2 (09:43→21:29)
--- NOTE | 2018-08-11 14:50 | P.PNIM ---
Subjective Interval history: Patient reports that she still has some right leg pain. No complaint of chest pain. Breathing is better. Did ambulate more. Percocet is helping with the pain. Wants to know when she can go home. Physical Exam Vital signs: Last Vital Signs Temp 98.8 F 08/11/18 00:00 Pulse 64 08/11/18 08:00 Resp 16 08/11/18 10:00 BP 179/81 H 08/11/18 05:26 Pulse Ox 95 08/11/18 06:00 Intake & Output 08/09/18 08/10/18 08/11/18 08/12/18 06:59 06:59 06:59 06:59 Intake Total 50 / 50 1540 / 1540 1959 Balance 50 / 50 1540 / 1540 1959 Weight 93.5 kg 98.2 kg 96.7 kg Narrative: GENERAL: This is a well-nourished, well-developed patient, in no apparent distress. CARDIOVASCULAR: Regular rate and rhythm RESPIRATORY: Clear to auscultation. Breath sounds equal bilaterally. No wheezes , rales, or rhonchi. GASTROINTESTINAL: Abdomen soft, non-tender, nondistended. Normal active bowel sounds MUSCULOSKELETAL: Mild right lower leg swelling with tenderness on palpation. NEURO: Alert & Oriented x4 to person, place, time, situation. Moves all ext x4 Results Labs CBC & Chem 7: 08/11/18 05:23 08/11/18 05:26 Labs: Microbiology 08/10/18 17:00 Stool Stool Occult Blood (BECKY) - Final Hemoccult negative Assessment and Plan (1) Pulmonary embolism: Code(s): I26.99 - Other pulmonary embolism without acute cor pulmonale Status: Acute (2) DVT (deep venous thrombosis): Code(s): I82.409 - Acute embolism and thrombosis of unspecified deep veins of unspecified lower extremity Status: Acute Plan 68-year-old white female with a history of COPD presents with a 4-day history of right lower extremity swelling and calf pain associated with acute substernal chest pain worse with deep inspiration found to have Submassive pulmonary emboli Right lower extremity DVT Transition heparin drip to Xarelto this evening as hemoglobin has remained stable Hemoccult stools has been negative, repeat hemoglobin in the morning. 2D echo revealed normal EF, trace to mild mitral valve regurgitation, mild tricuspid regurgitation with pulmonary arterial pressure 50 mmHg Anemia hemoglobin 11.3 remained stable today, will monitor, Hemoccult stools negative Tobacco abusecounseled smoking cessation DVT prophylaxison heparin will transition to Xarelto Transfer out of the intensive care unit, awaiting bed and MedSurg floor. Possible discharge to home in the morning if patient remains stable Progress Note: Quality VTE Deep Vein Thrombosis/Pulmonary Embolism Present on Admission: Yes
[2018-08-11] MEDS: Heparin Drip 25,000 UNIT/250 ML BAG IV.CONT PRN (16:30)
[2018-08-11] MEDS: Pregabalin 75 MG Capsule PO SCH (21:28)
[2018-08-11] MEDS: Rivaroxaban 15 MG Tablet PO SCH (21:28)
[2018-08-12] MEDS: Chlorhexidine Gluconate 2% 1 Pack (2 Cloths) TOPICAL SCH (03:18)
[2018-08-12] MEDS: Sod Chloride 0.9% Inj 1,000 ML IV.CONT SCH (03:18)
[2018-08-12 06:57] LABS: Baso % (Auto) 0.7 % (0.0-2.0); Eos # (Auto) 0.2 th/mm3 (0.0-0.4); Eos % (Auto) 4.4 % (0.0-4.0); Hematocrit 35.2 % (35.0-46.0); Hemoglobin 12.2 gm/dL (11.6-15.3); Lymph # (Auto) 1.1 th/mm3 (1.0-4.8); Lymph % (Auto) 27.5 % (9.0-44.0); Mean Corpuscular HGB Conc 34.7 % (32.0-36.0); Mean Corpuscular Hemoglobin 30.6 pg (27.0-34.0); Mean Corpuscular Volume 88.2 fL (80.0-100.0); Mean Platelet Volume 7.4 fL (7.0-11.0); Mono # (Auto) 0.2 th/mm3 (0.0-0.9); Mono % (Auto) 5.7 % (0.0-8.0); Neut # (Auto) 2.5 th/mm3 (1.8-7.7); Neut % (Auto) 61.7 % (16.0-70.0); Platelet Count 163 th/mm3 (150-450); Red Blood Count 3.99 mil/mm3 (4.00-5.30); Red Cell Distribution Width 14.3 % (11.6-17.2); White Blood Count 4.1 th/mm3 (4.0-11.0)
[2018-08-12 07:26] LABS: Albumin 2.8 g/dL (3.4-5.0); Anion Gap 7 meq/L (5-15); Aspartate Aminotransferase 19 U/L (15-37); Blood Urea Nitrogen 11 mg/dL (7-18); Calcium 8.9 mg/dL (8.5-10.1); Carbon Dioxide 27.2 meq/L (21.0-32.0); Chloride 110 meq/L (98-107); Glomerular Filtration Rate 81 mL/min (>89); Glucose,Random 87 mg/dL (74-106); Magnesium 1.9 mg/dL (1.5-2.5); Potassium 3.4 meq/L (3.5-5.1); Sodium 144 meq/L (136-145)
[2018-08-12 07:27] LABS: Alanine Aminotransferase 22 U/L (10-53)
[2018-08-12 07:29] LABS: Alkaline Phosphatase 90 U/L (45-117); Total Protein 6.5 g/dL (6.4-8.2)
[2018-08-12] MEDS: Polyethylene Glycol 3350 17 GM Packet PO SCH (09:08)
[2018-08-12] MEDS: Metoprolol Tartrate 25 MG Tablet PO SCH (09:09)
[2018-08-12] MEDS: Rivaroxaban 15 MG Tablet PO SCH (09:10)
[2018-08-12] MEDS: Senna/Docusate Sodium 8.6/50 MG Tablet PO SCH (09:10)
[2018-08-12] MEDS: Sertraline 100 MG Tablet PO SCH (09:10)
--- NOTE | 2018-08-12 09:27 | P.DS ---
DS: Providers Date of admission: 08/09/18 03:01 Primary care physician: UNKNOWN Consults: 08/09/18 03:05 Consult to Hospitalist Routine Consulting Provider: Douglas Rasheed Reason for Consultation: submassive PE Notified:: Service Spoke with:: santos Date Notified:: 08/09/18 Time Notified:: 03:47 Ordering Provider: HOMAR 08/09/18 03:16 HUB Only Consult Order Routine Consulting Provider: Kindra Arguelles Brief History from admission: 68yF with history of tobacco abuse and COPD presents with 4 days of RLE swelling and calf pain, and then sudden-onset acute substernal chest pain last night that began suddenly. worse with deep inspiration. also a feeling that she "can't catch her breath." denies lightheadedness, syncope. denies fever, chills , cough, congestion. denies n/v/c/d or abd pain. in the ER, CTA pulmonary angiogram demonstrates significant bilateral pulmonary emboli with significant clot burden. I went immediately to the bedside and evaluated the patient. I performed bedside critical care echocardiogram which demonstrates normal biventricular function, and in particular a collapsable IVC, no clinically significant TR, normal TAPSE, normal RV size and gross function, no evidence of McConnel's sign. She also has negative biomarker evidence of RV strain. Of note , patient is not on OCPs, does not take anticoagulation, has no personal or family history of blood clots, clotting or bleeding disorders. ROS is otherwise negative. FHx: no family history of blood clots, clotting disorders, bleeding disorders, PE. DS: Diagnosis Discharge Diagnosis (1) Pulmonary embolism: Status: Acute (2) DVT (deep venous thrombosis): Status: Acute DS: Summary 68-year-old white female admitted for bilateral pulmonary emboli with right lower extremity DVT and placed on heparin drip in the intensive care unit and was initially seen by the critical care service. Hemoccult stools was negative on anticoagulation. 2D echo revealed normal EF with trace to mild mitral valve regurgitation, mild tricuspid regurgitation with pulmonary arterial pressure 50 mmHg. Her shortness of breath and pain improved during hospitalization. Hemoglobin remained stable and patient was transitioned from heparin to Xarelto. Patient was counseled to follow-up with her primary care physician for continued outpatient workup including malignancy workup and screening. Time Spent with Patient Total time spent providing and/or coordinating discharge services: Less than 30 minutes Quality: VTE Deep Vein Thrombosis/Pulmonary Embolism Present on Admission: Yes Exam Narrative Exam Narrative: GENERAL: This is a well-nourished, well-developed patient, in no apparent distress. CARDIOVASCULAR: Regular rate and rhythm RESPIRATORY: Relatively clear to auscultation. Breath sounds equal bilaterally. No wheezes, rales, or rhonchi. GASTROINTESTINAL: Abdomen soft, non-tender, nondistended. Normal active bowel sounds MUSCULOSKELETAL: Right lower extremity swelling improved, mild tenderness on palpation. NEURO: Alert & Oriented x4 to person, place, time, situation. Moves all ext x4 HENMT Head: normocephalic and atraumatic Nose: no nasal discharge and no epistaxis Mouth: moist mucous membranes Eyes Sclera: normal sclerae Pupils: PERRL Neck Neck: trachea midline and no JVD Resp Effort & Inspection: no use of accessory muscles Auscultation: clear to auscultation bilaterally Cardio Rate: regular rate Rhythm: regular rhythm Heart Sounds: no murmurs GI Inspection: non-distended Palpation: soft, no hepatosplenomegaly and nontender Skin General: dry skin (warm) Neuro General: alert and awake Cranial Nerves: other Speech: speech normal Motor: no movement abnormalities noted Extrem General: normal to inspection, no clubbing and no cyanosis Psych Mood: congruent mood Affect: normal affect Judgment: judgment good Results Labs on day of discharge: Labs from last 24 hours 08/12/18 08/12/18 08/12/18 05:53 05:53 05:53 WBC 4.1 RBC 3.99 L Hgb 12.2 Hct 35.2 MCV 88.2 MCH 30.6 MCHC 34.7 RDW 14.3 Plt Count 163 MPV 7.4 Neut % (Auto) 61.7 Lymph % (Auto) 27.5 [place] % (Auto) 5.7 Eos % (Auto) 4.4 H Baso % (Auto) 0.7 Neut # (Auto) 2.5 Lymph # (Auto) 1.1 [place] # (Auto) 0.2 Eos # (Auto) 0.2 Baso # (Auto) 0.0 WBC Differential . Differential Comment Auto diff final APTT 32.6 H Sodium 144 Potassium 3.4 L Chloride 110 H Carbon Dioxide 27.2 Anion Gap 7 BUN 11 Creatinine 0.72 Estimated GFR 81 L Random Glucose 87 Calcium 8.9 Phosphorus 3.0 Magnesium 1.9 Total Bilirubin 0.5 AST 19 ALT 22 Alkaline Phosphatase 90 Total Protein 6.5 Albumin 2.8 L 08/11/18 14:37 WBC RBC Hgb Hct MCV MCH MCHC RDW Plt Count MPV Neut % (Auto) Lymph % (Auto) [place] % (Auto) Eos % (Auto) Baso % (Auto) Neut # (Auto) Lymph # (Auto) [place] # (Auto) Eos # (Auto) Baso # (Auto) WBC Differential Differential Comment APTT 37.6 H Sodium Potassium Chloride Carbon Dioxide Anion Gap BUN Creatinine Estimated GFR Random Glucose Calcium Phosphorus Magnesium Total Bilirubin AST ALT Alkaline Phosphatase Total Protein Albumin Impressions ITS Impressions Chest X-Ray 08/09/18 00:43 CONCLUSION: No acute cardiopulmonary disease identified. Chest CTA 08/09/18 00:45 CONCLUSION: Multiple moderate-sized pulmonary emboli bilaterally. Venous Doppler Study 08/09/18 02:54 CONCLUSION: Occlusive deep vein thrombosis of the popliteal vein, proximal peroneal vein, and proximal posterior tibial vein. Nonocclusive deep vein thrombosis of the distal superficial femoral vein. Discharge Plan Discharge Disposition Patient Disposition: Discharge Home Discharge Condition Condition: Good Discharge Order Discharge Orders: Discharge Order (Routine); Ordered 08/12/18 Ordered By: Bel Hinds Physicians Team Primary Care Provider: UNKNOWN, Attending Provider: Bel Hinds Other Providers: Kindra Arguelles Rxs /Orders / Referrals /Forms Prescriptions: New rivaroxaban [Xarelto] 15 mg (42)- 20 mg (9) tablets,dose pack See Label Instructions PO PER PKG DIR Qty: 51 RF: 0 Continue sertraline 100 mg Tablet 100 mg PO DAILY RF: 0 clobetasol 0.05 % Cream 1 applic TOPICAL BID RF: 0 oxycodone-acetaminophen [Percocet] 5-325 mg Tablet 1 tab PO Q4-6H PRN (Reason: Acute Pain) RF: 0 metoprolol succinate 25 mg Tablet Extended Release 24 Hr 25 mg PO DAILY RF: 0 esomeprazole magnesium [Nexium] 20 mg Capsule,Delayed Release(Dr/Ec) 20 mg PO DAILY RF: 0 pregabalin [Lyrica] 75 mg Capsule 75 mg PO DAILY RF: 0 melatonin 5 mg Tablet 5 mg PO HS PRN (Reason: Insomnia) RF: 0 umeclidinium-vilanterol [Anoro Ellipta] 62.5-25 mcg/actuation Blister With Device 1 inh INHALATION Q24H RF: 0 Discontinued naproxen sodium [Aleve] 220 mg Tablet 220 mg PO BID PRN (Reason: Acute Pain) RF: 0 Referrals: UNKNOWN, [Primary Care Provider] - See Instructions ( Please call the physician's office to book the appointment to be seen within 1 week.) Discharge Instructions Patient Printed Instructions: Rivaroxaban (By mouth), Pulmonary Embolism (GEN) , Deep Vein Thrombosis (GEN) Post Discharge Care Plan Care Plan Goals: Your Health Problems: Pulmonary Embolism and right lower leg deep venous thrombosis Goals to Promote Your Health: * To prevent worsening of your condition * To maintain your health at the optimal level Directions to Meet Your Goals: * Take your medications as prescribed * Follow your dietary instruction * Follow activity as directed * Keep your appointments as scheduled * Take your immunizations and boosters as scheduled * If your symptoms worsen call your PCP * If no PCP go to Urgent Care or Emergency Room Smoking is dangerous to your health. Avoid second hand smoke. You may reach the 24-hour crisis hotline for domestic abuse at . Status ED Status: Left Department
== END 2018-08-12 11:24 | disposition home or self-care (01) ==
LOC: NEPE 00:22 → NEDA 03:01 → N03 03:59 → N04 08-11 17:06
PROVIDERS: ADMIT Family Medicine; ATTEND Family Medicine
DX: L40.9 Psoriasis, unspecified; F17.210 Nicotine dependence, cigarettes, uncomplicated; D64.9 Anemia, unspecified; M79.7 Fibromyalgia; I08.1 Rheumatic disorders of both mitral and tricuspid valves; I26.99 Other pulmonary embolism without acute cor pulmonale; I82.431 Acute embolism and thrombosis of right popliteal vein; J44.9 Chronic obstructive pulmonary disease, unspecified; I82.441 Acute embolism and thrombosis of right tibial vein; Z88.5 Allergy status to narcotic agent; I82.4Z1 Acute embolism and thrombosis of unspecified deep veins of right distal lower extremity